=== PATIENT | female | born 1975 | race Caucasian/White ===

== ENCOUNTER 2016-10-03 08:31 | Day surgery (SDC) | payer BC ==
[~2016-10-03] VITALS: Ht 182.9 cm; Wt 97.5 kg
[~2016-10-03 08:31] MED LIST: Aspirin Chewable PO; CAVAN-FOLATE D1 EACH; Flagyl PO; MOTRIN800 MG PO; Motrin PO; NATALCARE RX1 TABLET PO; NITROFURANTOIN100 MG PO; NOVOLIN N100 UNITS/; NOVOLIN N100 UNITS/ SC; NOVOLOG MI100 UNIT/M SC; NOVOLOG PE100 UNITS/ SC; OXYCODONE HCL5 MG PO; Percocet 5/325,Endoc PO
[2016-10-03 09:00] VITALS: BP 121/84
[2016-10-03] MEDS ORDERED: IBUPROFEN800 MG PO (11:11)
[2016-10-03] MEDS ORDERED: HYDROCODON-ACE1 EAC7 PO (11:11)
[2016-10-03 14:35] VITALS: BP 100/68
[2016-10-03 15:40] VITALS: BP 113/61
[2016-10-03 17:25] VITALS: BP 116/70
[2016-10-03 19:03] VITALS: BP 120/60
== END 2016-10-03 19:10 | disposition home or self-care (01) ==
LOC: SDC 08:31
DX: N92.0 Excessive and frequent menstruation with regular cycle (principal); N94.6 Dysmenorrhea, unspecified; N72 Inflammatory disease of cervix uteri; K66.0 Peritoneal adhesions (postprocedural) (postinfection); E66.9 Obesity, unspecified; Z68.42 Body mass index [BMI] 45.0-49.9, adult; Z86.2 Personal history of diseases of the blood and blood-forming organs and certain disorders involving the immune mechanism; Z86.32 Personal history of gestational diabetes; Z82.49 Family history of ischemic heart disease and other diseases of the circulatory system; Z83.49 Family history of other endocrine, nutritional and metabolic diseases; Z80.8 Family history of malignant neoplasm of other organs or systems
CPT/HCPCS: 88307; J0690; J1100; J1170; J1885; J2175; J2250; J2405; J2710; J2765; J3010